=== PATIENT | male | born 1990 | race Caucasian/White ===

== ENCOUNTER → 2018-08-19 | Day surgery (SDC) | payer OTHER ==
[~2018-08-19] MED LIST: IV RINGERS,LACTATED 1000ML 1,000 ML IV SCH; LEVO137T3 PO; LIDOCAINE 1% PF 2 ML VIAL. ID PRN; MIDAZOLAM HCL/PF 2 MG/2 ML VIAL. IV PRN; PROPOFOL 20 ML IV ONE; fentaNYL PF VIAL 100 MCG/2 ML VIAL IV PRN
[2018-08-19 13:10] VITALS: BP 118/57
== END | disposition home or self-care (01) ==
LOC: SURG 12:42
PROVIDERS: ATTEND Internal Medicine
DX: R12 Heartburn (principal); Z53.8 Procedure and treatment not carried out for other reasons
CPT/HCPCS: J2704

== ENCOUNTER → 2018-08-25 | Day surgery (SDC) | payer OTHER ==
[~2018-08-25] MED LIST changes: +HYDROmorphone 2 MG/ML VIAL IV PRN; -MIDAZOLAM HCL/PF 2 MG/2 ML VIAL. IV PRN; +MORPHINE SULFATE 4 MG/ML VIAL. IV PRN; +ONDANSETRON PF 4 MG/2 ML VIAL. IV PRN; +PROCHLORPERAZINE 10 MG/2 ML VIAL. IV PRN; -PROPOFOL 20 ML IV ONE; +PROPOFOL 40 ML IV ONE
[2018-08-25 12:49] VITALS: BP 96/52
--- NOTE | 2018-08-26 17:10 | PATHOLOGY ---
[facility] Accession Number: [id number] . 01 Material submitted: . PART A: SMALL BOWEL BIOPSY PART B: GASTRIC BIOPSY . 01 Clinical history: . GERD, abdominal pain . 02 Diagnosis: A. Small bowel biopsy: - No significant pathologic abnormalities. . B. Gastric biopsy: - Congestion and slight superficial chronic inflammation. . (JPM:mml; 08/26/2018) [facility]/08/26/2018 . 02 Comment: Sections of the small bowel biopsy reveal segments of duodenal and small intestine mucosa, one of which contains a lymphoid aggregate. Where best oriented, the mucosal villi show no sprue-like changes or significant inflammatory changes. Sections of the gastric biopsy reveal segments of gastric body and antral/body transition mucosa showing congestion and slight superficial chronic inflammation. A properly-controlled immunoperoxidase stain for Helicobacter is negative for Helicobacter organisms. There is no evidence of malignancy. . Special stain: Immunoperoxidase stain for Helicobacter on B1. . (JPM:mml; 08/26/2018) . 02 Electronically signed: . Tuan Arredondo MD, Pathologist NPI- [id number] . 01 Gross description: . A. The specimen is received in formalin, labeled "Mark Roberts, small bowel, BX, rule out C sprue", are several irregular fragments of ballard tissue measuring 0.7 x 0.3 x 0.1 cm in aggregate, entirely submitted in A1. . B. The specimen is received in formalin, labeled "Mark Roberts, gastric BX rule out H. pylori", are two irregular fragment of ballard tissues measuring 0.4 cm in greatest dimension each, entirely submitted in B1. ([facility]; 08/25/2018) [facility] . 02 Pathologist provided ICD-10: K29.30, K31.89 . 02 CPT . 678026, 850869, G11590 Specimen Comment: A courtesy copy of this report has been sent to Specimen Comment: [phone], . Specimen Comment: Report sent to / DR LUGO Specimen Comment: A duplicate report has been generated due to demographic updates. Performed at: 01 [facility] [address] [facility] [address], [place] [id number] MD Karlos Martinez MD Phone: [phone] Performed at: 02 [facility] [address] [place], [place] [id number] MD Tuan Arredondo MD Phone: [phone]
== END | disposition home or self-care (01) ==
LOC: SURG 11:01
PROVIDERS: ATTEND Internal Medicine
DX: K29.30 Chronic superficial gastritis without bleeding (principal); K21.0 Gastro-esophageal reflux disease with esophagitis; K22.8 Other specified diseases of esophagus; E03.9 Hypothyroidism, unspecified; Z90.49 Acquired absence of other specified parts of digestive tract; Z87.891 Personal history of nicotine dependence; Z72.89 Other problems related to lifestyle
CPT/HCPCS: 43239; 88305; 88342; J2704